=== PATIENT | female | born 1985 | race Caucasian/White ===

== ENCOUNTER → 2020-10-04 | Outpatient (CLI) | payer OTHER ==
[2020-10-04 14:03] LABS: BASO # 0.1 10^3/uL (0.0-0.2); BASO % 0.7 % (0.0-1.0); EOS # 0.1 10^3/uL (0.0-0.5); EOS % 1.3 % (0.0-3.0); LYMPH # 1.2 10^3/uL (1.5-5.0); LYMPH % 17.5 % (24.0-44.0); MEAN CORPUSCULAR HEMOGLOBIN 30.2 pg (27.0-33.0); MEAN CORPUSCULAR HGB CONC 33.3 g/dl (32.0-36.5); MEAN CORPUSCULAR VOLUME 90.5 fl (80.0-96.0); MONO # 0.7 10^3/uL (0.0-0.8); MONO % 9.2 % (2.0-8.0); NEUTROPHILS % 70.9 % (36.0-66.0); PLATELET COUNT, AUTOMATED 314 10^3/uL (150-450); RED BLOOD COUNT 4.64 10^6/uL (4.00-5.40)
[2020-10-04 14:14] LABS: PARTIAL THROMBOPLASTIN TIME 27.5 SECONDS (24.2-38.5); PROTHROMBIN TIME 13.4 SECONDS (12.5-14.3)
[2020-10-04 14:22] LABS: ERYTHROCYTE SEDIMENTATION RATE 24 mm/hr (0-20)
[2020-10-04 14:32] LABS: ALBUMIN 4.1 GM/DL (3.2-5.2); ALT/SGPT 37 U/L (12-78); BILIRUBIN,DIRECT < 0.1 MG/DL (0.0-0.2); BILIRUBIN,TOTAL 0.3 MG/DL (0.2-1.0); BLOOD UREA NITROGEN 15 MG/DL (7-18); C REACTIVE PROTEIN QUANTITATIV 1.91 MG/DL (0.00-0.30); CALCIUM LEVEL 9.5 MG/DL (8.5-10.1); CARBON DIOXIDE LEVEL 30 MEQ/L (21-32); CHLORIDE LEVEL 106 MEQ/L (98-107); CREATININE FOR GFR 0.98 MG/DL (0.55-1.30); GLOMERULAR FILTRATION RATE > 60.0 (>60); GLUCOSE, FASTING 72 MG/DL (70-100); IRON (FE) 46 UG/DL (50-170); PERCENT SATURATION 14.7 % (13.2-45.0); POTASSIUM SERUM 4.1 MEQ/L (3.5-5.1); SODIUM LEVEL 139 MEQ/L (136-145); TOTAL IRON BINDING CAPACITY 312 UG/DL (250-450); TOTAL PROTEIN 8.1 GM/DL (6.4-8.2)
[2020-10-04 14:37] LABS: HEPATITIS B SURFACE ANTIBODY POSITIVE (POSITIVE)
[2020-10-04 14:38] LABS: FOLATE 10.3 NG/ML (>5.4); VITAMIN B12 LEVEL 863 PG/ML (247-911)
== END ==
LOC: M LAB 13:19
PROVIDERS: ATTEND Internal Medicine Gastroenterology
DX: K50.90 Crohn's disease, unspecified, without complications (principal)

== ENCOUNTER → 2020-10-23 | Outpatient (CLI) | payer OTHER ==
[~2020-10-23] MED LIST: GLUCAGON INJ 1MG VIAL As Ordered ONE; ISOVUE-370 76% 100ML VIAL As Ordered ONE; VoLumen 0.1% SUSPENSION 450ML BOTTLE As Ordered ONE
--- NOTE | 2020-10-23 17:48 | REP ---
INDICATION: CROHN'S DISEASE. Patient denies a prior abdominal surgery other than and tubal ligation. COMPARISON: None. TECHNIQUE: The patient ingested oral Volumen for PO contrast per protocol. 0.6 mg of intravenous glucagon is administered. 100 ml of Isovue 370 is given intravenously for intravenous contrast. Helical scanning is acquired. Arterial phase and delayed phase imaging was acquired. Thick slab coronal and sagittal MIP images are generated. In addition coronal and sagittal multiplanar re-formation images are generated and reviewed along with axial images. FINDINGS: Digital preliminary automatic toe laster radiograph demonstrates tubal ligation clamps bilaterally in the pelvis. Bowel gas pattern is unremarkable. The lung bases are clear on axial CT images. Stomach is moderately distended with oral volume in. No gastric wall or intraluminal lesion is seen. The liver and the spleen are normal in size homogeneous in texture. Gallbladder fossa has a fold at the fundus, Phrygian cap configuration. No pancreatic abnormality is observed. Normal adrenal glands are seen bilaterally. No hydronephrosis or renal mass lesion is observed. The duodenum and jejunal loops are unremarkable. A normal appendix is seen in the right lower quadrant. There is a short segment of moderate to marked mural thickening and hyperenhancement in the distal ileum at and just proximal to the ileocecal valve for approximately 3.0 cm in length. The distal ileal loop just proximal to this segment is slightly dilated. No other evidence is seen to suggest obstruction. Mural thickening in the distal most ileum measures up to 13 mm. The cecum and colon wall are not thickened. No other small bowel involvement is appreciated. There are few tiny a normal appearing mesenteric lymph nodes. There is no evidence of fistula or free air. No abscess is seen. There is mild streakiness of the adjacent fat. No uterine or ovarian abnormality is appreciated. The urinary bladder is intact. No abdominal wall defect is seen. Maximum intensity projection images show no additional abnormality in the bowel wall. No bony destructive lesion is seen. IMPRESSION: Findings compatible with Crohn's involvement rather focally in the distal most ileum extending to the ileocecal valve with moderate mural thickening. Slight Kathy enteral fat streakiness. No evidence of abscess or aristides obstruction. <Electronically signed by Asa Kellogg > 10/23/20 [id number]
== END ==
LOC: M RAD 09:01
PROVIDERS: ATTEND Internal Medicine Gastroenterology
DX: K50.90 Crohn's disease, unspecified, without complications (principal); K62.5 Hemorrhage of anus and rectum
CPT/HCPCS: 74177; J1610; Q9967

== ENCOUNTER 2020-11-09 15:44 | Outpatient (CLI) | payer OTHER ==
[~2020-11-09 15:44] MED LIST changes: -GLUCAGON INJ 1MG VIAL As Ordered ONE; -ISOVUE-370 76% 100ML VIAL As Ordered ONE; +VEDOLIZUMAB 300 MG in NS 250 ML IV ONE; -VoLumen 0.1% SUSPENSION 450ML BOTTLE As Ordered ONE
[2020-11-09 16:00] VITALS: BP 137/82
[2020-11-09] MEDS ORDERED: MULTLIQ7 PO (16:18)
[2020-11-09] MEDS ORDERED: LAMI25TA PO (16:18)
[2020-11-09] MEDS ORDERED: HYDR-3363 PO (16:18)
[2020-11-09] MEDS ORDERED: VITA200048 PO (16:18)
[2020-11-09] MEDS ORDERED: CLAR10CA3 PO (16:18)
[2020-11-09 16:51] VITALS: BP 128/85
== END 2020-11-09 17:07 | disposition home or self-care (01) ==
LOC: M INFU 15:44
PROVIDERS: ATTEND Internal Medicine Gastroenterology
DX: K50.90 Crohn's disease, unspecified, without complications (principal)
CPT/HCPCS: 96365; J3380

== ENCOUNTER 2020-11-23 15:16 | Outpatient (CLI) | payer OTHER ==
[~2020-11-23] VITALS: Ht 167.6 cm; Wt 78.1 kg
[~2020-11-23 15:16] MED LIST changes: +CLAR10CA3 PO; +HYDR-3363 PO; +LAMI25TA PO; +MULTLIQ7 PO; -VEDOLIZUMAB 300 MG in NS 250 ML IV ONE; +VITA200048 PO
[2020-11-23 15:20] VITALS: BP 134/85
[2020-11-23] MEDS ORDERED: VEDOLIZUMAB 300 MG in NS 250 ML IV ONE (15:30)
[2020-11-23 16:45] VITALS: BP 125/85
== END 2020-11-23 16:45 | disposition home or self-care (01) ==
LOC: M INFU 15:16
PROVIDERS: ATTEND Internal Medicine Gastroenterology
DX: K50.90 Crohn's disease, unspecified, without complications (principal)
CPT/HCPCS: 96365; J3380

== ENCOUNTER 2020-12-11 21:02 | Emergency (ER) | payer OTHER ==
[~2020-12-11] VITALS: Ht 167.6 cm; Wt 80.7 kg
[2020-12-11 21:04] VITALS: BP 145/88
[2020-12-11] MEDS ORDERED: ENTY1INJ IV (21:13)
== END 2020-12-11 22:47 | disposition left against medical advice (07) ==
LOC: M ED 21:02
DX: Z53.21 Procedure and treatment not carried out due to patient leaving prior to being seen by health care provider (principal)

== ENCOUNTER → 2020-12-26 | Outpatient (CLI) | payer OTHER ==
[~2020-12-26] MED LIST changes: +CLIN150C15 PO; +ENTY1INJ IV
== END ==
LOC: M LABSMTC 09:44
PROVIDERS: ATTEND Anesthesiology
DX: Z01.812 Encounter for preprocedural laboratory examination (principal)

== ENCOUNTER 2020-12-31 10:27 | Day surgery (SDC) | payer OTHER ==
[~2020-12-31] VITALS: Ht 167.6 cm; Wt 76.2 kg
[~2020-12-31 10:27] MED LIST changes: +NS 1,000 ML IV ONE
[2020-12-31] MEDS ORDERED: LIDOCAINE 2% 100MG/5ML SDV (FOR ANES.) As Ordered ONE (10:48)
[2020-12-31] MEDS ORDERED: propofoL 200 MG/20 ML VIAL As Ordered ONE ×3 (10:48→11:12)
--- NOTE | 2020-12-31 11:46 | ROOR ---
Patient Name: Jaci Olvera Procedure Date: 12/31/2020 10:57 AM Date of : 1985 Age: 35 Room: [facility] Gender: Female Note Status: Finalized Procedure: Colonoscopy Indications: Disease activity assessment of Crohn's disease of the small bowel and colon, Assess therapeutic response to therapy of Crohn's disease of the small bowel and colon Providers: Blaine Durbin MD Referring MD: [facility], Admin. Requesting Provider: Medicines: Monitored Anesthesia Care Complications: No immediate complications. Procedure: Pre-Anesthesia Assessment: - Prior to the procedure, a History and Physical was performed, and patient medications and allergies were reviewed. The patient is competent. The risks and benefits of the procedure and the sedation options and risks were discussed with the patient. All questions were answered and informed consent was obtained. Patient identification and proposed procedure were verified by the physician, the nurse and the anesthesiologist in the procedure room. Mental Status Examination: alert and oriented. Airway Examination: normal oropharyngeal airway and neck mobility. Respiratory Examination: clear to auscultation. CV Examination: normal. Prophylactic Antibiotics: The patient does not require prophylactic antibiotics. Prior Anticoagulants: The patient has taken no previous anticoagulant or antiplatelet agents. ASA Grade Assessment: II - A patient with mild systemic disease. After reviewing the risks and benefits, the patient was deemed in satisfactory condition to undergo the procedure. The anesthesia plan was to use monitored anesthesia care (MAC). Immediately prior to administration of medications, the patient was re-assessed for adequacy to receive sedatives. The heart rate, respiratory rate, oxygen saturations, blood pressure, adequacy of pulmonary ventilation, and response to care were monitored throughout the procedure. The physical status of the patient was re-assessed after the procedure. The Colonoscope was introduced through the anus and advanced to the terminal ileum, with identification of the appendiceal orifice and IC valve. The colonoscopy was performed without difficulty. The patient tolerated the procedure well. Findings: The perianal exam findings include thrombosed external hemorrhoids. The ileocecal valve contained a benign-appearing, intrinsic severe stenosis measuring 8 mm (inner diameter) that was non-traversed. Biopsies were taken with a cold forceps for histology. Verification of patient identification for the specimen was done by the physician and nurse using the patient's name, date and medical record number. Estimated blood loss was minimal. The terminal ileum and ileocecal valve contained multiple ulcers. The ulcers bleeding on contact with scope. No stigmata of recent bleeding were seen. A large healed ulcer was found in the sigmoid colon, in the descending colon, in the transverse colon and in the ascending colon. The scar tissue was healthy in appearance. An area of mildly congested mucosa was found in the entire colon. Biopsies for histology were taken with a cold forceps from the right colon, left colon, transverse colon and rectosigmoid colon for evaluation of microscopic colitis. External hemorrhoids were found during retroflexion. The hemorrhoids were large. Impression: - Thrombosed external hemorrhoids found on perianal exam. - Stricture at the ileocecal valve. Biopsied. - Multiple ulcers in the terminal ileum and at the ileocecal valve. - Scar in the sigmoid colon, in the descending colon, in the transverse colon and in the ascending colon. - Congested mucosa in the entire examined colon. Biopsied. - External hemorrhoids. Recommendation: - Patient has a contact number available for emergencies. The signs and symptoms of potential delayed complications were discussed with the patient. Return to normal activities tomorrow. Written discharge instructions were provided to the patient. - High fiber diet. - Use original regular Metamucil one tablespoon PO daily. - Continue present medications. - Await pathology results. - Repeat colonoscopy in 1 year to assess disease activity, to evaluate the response to therapy and for surveillance based on pathology results. - Return to GI clinic 1 - 2 weeks. Please call GI clinic @ [phone] for apppointment date and time. - Return to primary care physician. Procedure Code(s): --- Professional --- 59544, Colonoscopy, flexible; with biopsy, single or multiple Diagnosis Code(s): --- Professional --- K64.5, Perianal venous thrombosis K50.812, Crohn's disease of both small and large intestine with intestinal obstruction K63.3, Ulcer of intestine K63.89, Other specified diseases of intestine CPT copyright 2019 [employer]. All rights reserved. The codes documented in this report are preliminary and upon vision therapist review may be revised to meet current compliance requirements. Blaine Durbin MD Blaine Durbin MD 12/31/2020 11:46:13 AM Electronically signed by Blaine Durbin MD Number of Addenda: 0 Note Initiated On: 12/31/2020 10:57 AM Estimated Blood Loss: Estimated blood loss was minimal.
[2020-12-31 11:50] VITALS: BP 121/81
== END 2020-12-31 12:10 | disposition home or self-care (01) ==
LOC: M OPP 10:27
PROVIDERS: ATTEND Internal Medicine Gastroenterology
DX: K63.3 Ulcer of intestine (principal); K63.89 Other specified diseases of intestine; K64.5 Perianal venous thrombosis; K50.812 Crohn's disease of both small and large intestine with intestinal obstruction; D64.9 Anemia, unspecified; F17.210 Nicotine dependence, cigarettes, uncomplicated; Z79.899 Other long term (current) drug therapy

== ENCOUNTER 2021-01-18 14:49 | Outpatient (CLI) | payer OTHER ==
[~2021-01-18] VITALS: Ht 167.6 cm; Wt 78.1 kg
[~2021-01-18 14:49] MED LIST changes: -NS 1,000 ML IV ONE
[2021-01-18 15:00] VITALS: BP 146/78
[2021-01-18] MEDS ORDERED: VEDOLIZUMAB 300 MG in NS 250 ML IV ONE (15:00)
[2021-01-18 16:15] VITALS: BP 140/87
== END 2021-01-18 16:15 | disposition home or self-care (01) ==
LOC: M INFU 14:49
PROVIDERS: ATTEND Internal Medicine Gastroenterology
DX: K50.90 Crohn's disease, unspecified, without complications (principal)
CPT/HCPCS: 96365; J3380

== ENCOUNTER 2021-03-14 20:11 | Emergency (ER) | payer OTHER ==
[~2021-03-14] VITALS: Ht 167.6 cm; Wt 74.3 kg
[~2021-03-14 20:11] MED LIST changes: -CLIN150C15 PO; +CLIN150C17 PO
[2021-03-14 21:55] LABS: HEMATOCRIT 40.9 % (36.0-47.0); HEMOGLOBIN 13.8 g/dl (12.0-15.5); MEAN CORPUSCULAR HEMOGLOBIN 29.4 pg (27.0-33.0); MEAN CORPUSCULAR HGB CONC 33.7 g/dl (32.0-36.5); PLATELET COUNT, AUTOMATED 298 10^3/uL (150-450); WHITE BLOOD COUNT 11.2 10^3/uL (4.0-10.0)
[2021-03-14] MEDS ORDERED: DICYCLOMINE 10 MG CAP PO ONE (22:10)
[2021-03-14] MEDS ORDERED: ONDANSETRON 4MG/2ML VIAL IV ONE (22:10)
[2021-03-14] MEDS ORDERED: NS 1,000 ML IV ONE (22:10)
[2021-03-14 22:22] LABS: ALBUMIN 3.7 GM/DL (3.2-5.2); ALT/SGPT 31 U/L (12-78); BILIRUBIN,DIRECT 0.2 MG/DL (0.0-0.2); BILIRUBIN,TOTAL 0.4 MG/DL (0.2-1.0); BLOOD UREA NITROGEN 14 MG/DL (7-18); CALCIUM LEVEL 8.2 MG/DL (8.5-10.1); CARBON DIOXIDE LEVEL 27 MEQ/L (21-32); CHLORIDE LEVEL 105 MEQ/L (98-107); CREATININE FOR GFR 0.95 MG/DL (0.55-1.30); GLOMERULAR FILTRATION RATE > 60.0 (>60); GLUCOSE, FASTING 90 MG/DL (70-100); LIPASE 85 U/L (73-393); POTASSIUM SERUM 4.1 MEQ/L (3.5-5.1); SODIUM LEVEL 137 MEQ/L (136-145); TOTAL PROTEIN 7.8 GM/DL (6.4-8.2)
[2021-03-14] MEDS ORDERED: ISOVUE-370 76% 100ML VIAL As Ordered ONE (22:33)
--- NOTE | 2021-03-14 23:35 | REPVR ---
PROCEDURE INFORMATION: Exam: CT Abdomen And Pelvis With Contrast Exam date and time: 03/14/2021 10:38 PM Age: 36 years old Clinical indication: Abdominal pain; Prior surgery; Additional info: Generalized abd pain, nv, HX crohns TECHNIQUE: Imaging protocol: Computed tomography of the abdomen and pelvis with contrast. Axial, coronal and sagittal reformatted images were created and reviewed. Radiation optimization: All CT scans at this facility use at least one of these dose optimization techniques: automated exposure control; mA and/or kV adjustment per patient size (includes targeted exams where dose is matched to clinical indication); or iterative reconstruction. Contrast material: ISOVUE 370; Contrast volume: 100 ml; Contrast route: INTRAVENOUS (IV); COMPARISON: No relevant prior studies available. FINDINGS: Liver: Mild hepatic steatosis. Gallbladder and bile ducts: No radiodense gallstones. No biliary ductal dilatation. Pancreas: Unremarkable. Spleen: Unremarkable. Adrenal glands: Normal. No mass. Kidneys and ureters: No mass. No radiodense calculi. No hydronephrosis. Stomach and bowel: Severe wall thickening of the terminal ileum and cecum with associated mural and mesenteric edema. No obstruction. No pneumatosis. Appendix: Normal. Intraperitoneal space: Trace nonspecific free pelvic fluid, likely physiologic and/or reactive. No organized fluid collection. No free air. Vasculature: Unremarkable. No aneurysm. Lymph nodes: No pathologically enlarged lymph nodes. Urinary bladder: Unremarkable as visualized. Reproductive: Probable involuting left ovarian corpus luteal cyst. Bones/joints: No acute osseous abnormality. Soft tissues: Unremarkable. IMPRESSION: 1. Terminal ileitis and cecitis, compatible with Crohn's exacerbation. 2. Additional findings, as above. Electronically signed by: Ricardo Gonzalez On 03/14/2021 23:34:46 PM
[2021-03-15] MEDS ORDERED: BUDESONIDE EC 3 MG CAP (ENTOCORT EC) PO STA (00:24)
[2021-03-15] MEDS ORDERED: BUDE9TAB PO (00:42)
[2021-03-15] MEDS ORDERED: ONDA4TAB6 PO (00:42)
[2021-03-15 00:54] VITALS: BP 138/87
== END 2021-03-15 00:55 | disposition home or self-care (01) ==
LOC: M ED 20:11
DX: K50.919 Crohn's disease, unspecified, with unspecified complications (principal); R11.2 Nausea with vomiting, unspecified; F17.200 Nicotine dependence, unspecified, uncomplicated; K76.0 Fatty (change of) liver, not elsewhere classified; Z79.899 Other long term (current) drug therapy
CPT/HCPCS: 74177; 80048; 80076; 81001; 83690; 85027; 96361; 96374; 99284; J2405; Q9967

== ENCOUNTER 2021-03-15 14:55 | Outpatient (CLI) | payer OTHER ==
[~2021-03-15] VITALS: Ht 167.6 cm; Wt 74.3 kg
[~2021-03-15 14:55] MED LIST changes: +BUDE9TAB PO; +ONDA4TAB6 PO
[2021-03-15 15:00] VITALS: BP 126/78
[2021-03-15] MEDS ORDERED: VEDOLIZUMAB 300 MG in NS 250 ML IV ONE (15:00)
[2021-03-15 15:12] VITALS: BP 126/78
[2021-03-15 16:10] VITALS: BP 131/70
== END 2021-03-15 16:10 | disposition home or self-care (01) ==
LOC: M INFU 14:55
PROVIDERS: ATTEND Internal Medicine Gastroenterology
DX: K50.90 Crohn's disease, unspecified, without complications (principal)
CPT/HCPCS: 96365; J3380

== ENCOUNTER 2021-05-10 15:11 | Outpatient (CLI) | payer OTHER ==
[~2021-05-10] VITALS: Ht 167.6 cm; Wt 74.0 kg
[~2021-05-10 15:11] MED LIST changes: +VEDOLIZUMAB 300 MG in NS 250 ML IV ONE
[2021-05-10 15:26] VITALS: BP 123/76
[2021-05-10 16:34] VITALS: BP 124/72
== END 2021-05-10 16:35 | disposition home or self-care (01) ==
LOC: M INFU 15:11
PROVIDERS: ATTEND Internal Medicine Gastroenterology
DX: K50.90 Crohn's disease, unspecified, without complications (principal)
CPT/HCPCS: 96365; J3380

== ENCOUNTER → 2021-06-14 | Outpatient (CLI) | payer OTHER ==
[~2021-06-14] MED LIST changes: -VEDOLIZUMAB 300 MG in NS 250 ML IV ONE
[2021-06-14 10:22] LABS: BASO # 0.1 10^3/uL (0.0-0.2); BASO % 0.6 % (0.0-1.0); EOS # 0.3 10^3/uL (0.0-0.5); EOS % 3.4 % (0.0-3.0); HEMATOCRIT 43.1 % (36.0-47.0); HEMOGLOBIN 14.2 g/dl (12.0-15.5); LYMPH # 1.7 10^3/uL (1.5-5.0); LYMPH % 21.2 % (24.0-44.0); MEAN CORPUSCULAR HEMOGLOBIN 29.8 pg (27.0-33.0); MEAN CORPUSCULAR HGB CONC 32.9 g/dl (32.0-36.5); MEAN CORPUSCULAR VOLUME 90.4 fl (80.0-96.0); MONO # 0.7 10^3/uL (0.0-0.8); MONO % 8.9 % (2.0-8.0); NEUTROPHILS # 5.1 10^3/uL (1.5-8.5); NEUTROPHILS % 65.4 % (36.0-66.0); PLATELET COUNT, AUTOMATED 289 10^3/uL (150-450); RED BLOOD COUNT 4.77 10^6/uL (4.00-5.40); WHITE BLOOD COUNT 7.8 10^3/uL (4.0-10.0)
[2021-06-14 11:05] LABS: BLOOD UREA NITROGEN 15 MG/DL (7-18); C REACTIVE PROTEIN QUANTITATIV 0.89 MG/DL (0.00-0.30); CREATININE FOR GFR 0.82 MG/DL (0.55-1.30); GLOMERULAR FILTRATION RATE > 60.0 (>60)
[2021-06-14 12:11] LABS: ERYTHROCYTE SEDIMENTATION RATE 16 mm/hr (0-20)
== END ==
LOC: M LAB 09:32
PROVIDERS: ATTEND Internal Medicine Gastroenterology
DX: K50.812 Crohn's disease of both small and large intestine with intestinal obstruction (principal)

== ENCOUNTER 2021-06-21 14:54 | Outpatient (CLI) | payer OTHER ==
[~2021-06-21] VITALS: Ht 167.6 cm; Wt 74.0 kg
[2021-06-21 15:00] VITALS: BP 130/83
[2021-06-21] MEDS ORDERED: VEDOLIZUMAB 300 MG in NS 250 ML IV ONE (15:00)
[2021-06-21 16:37] VITALS: BP 124/79
== END 2021-06-21 16:40 | disposition home or self-care (01) ==
LOC: M INFU 14:54
PROVIDERS: ATTEND Internal Medicine Gastroenterology
DX: K50.90 Crohn's disease, unspecified, without complications (principal)
CPT/HCPCS: 96365; J3380

== ENCOUNTER 2021-07-31 15:59 | Outpatient (CLI) | payer OTHER ==
[~2021-07-31] VITALS: Ht 167.6 cm; Wt 74.2 kg
[2021-07-31] MEDS ORDERED: VEDOLIZUMAB 300 MG in NS 250 ML IV ONE (16:00)
[2021-07-31 16:05] VITALS: BP 125/69
[2021-07-31 17:10] VITALS: BP 139/70
== END 2021-07-31 17:10 | disposition home or self-care (01) ==
LOC: M INFU 15:59
PROVIDERS: ATTEND Internal Medicine Gastroenterology
DX: K50.90 Crohn's disease, unspecified, without complications (principal)
CPT/HCPCS: 96365; J3380

== ENCOUNTER 2021-09-13 14:51 | Outpatient (CLI) | payer OTHER ==
[~2021-09-13] VITALS: Ht 167.6 cm; Wt 75.5 kg
[2021-09-13] MEDS ORDERED: VEDOLIZUMAB 300 MG in NS 250 ML IV ONE (15:00)
[2021-09-13 15:18] VITALS: BP 132/81
[2021-09-13 16:00] VITALS: BP 143/90
== END 2021-09-13 16:00 | disposition home or self-care (01) ==
LOC: M INFU 14:51
PROVIDERS: ATTEND Internal Medicine Gastroenterology
DX: K50.90 Crohn's disease, unspecified, without complications (principal)
CPT/HCPCS: 96365; J3380

== ENCOUNTER 2021-10-25 14:48 | Outpatient (CLI) | payer OTHER ==
[~2021-10-25] VITALS: Ht 167.6 cm; Wt 74.3 kg
[2021-10-25] MEDS ORDERED: VEDOLIZUMAB 300 MG in NS 250 ML IV ONE (15:00)
[2021-10-25 15:08] VITALS: BP 157/89
[2021-10-25 16:00] VITALS: BP 137/89
== END 2021-10-25 16:00 | disposition home or self-care (01) ==
LOC: M INFU 14:48
PROVIDERS: ATTEND Internal Medicine Gastroenterology
DX: K50.90 Crohn's disease, unspecified, without complications (principal)
CPT/HCPCS: 96365; J3380

== ENCOUNTER 2022-01-07 15:45 | Outpatient (CLI) | payer OTHER ==
[~2022-01-07 15:45] MED LIST changes: +VEDOLIZUMAB 300 MG in NS 250 ML IV ONE
[2022-01-07 15:57] VITALS: BP 130/84
[2022-01-07 16:50] VITALS: BP 145/82
== END 2022-01-07 16:55 | disposition home or self-care (01) ==
LOC: M INFU 15:45
PROVIDERS: ATTEND Internal Medicine Gastroenterology
DX: K50.90 Crohn's disease, unspecified, without complications (principal)
CPT/HCPCS: 96365; J3380

== ENCOUNTER 2022-01-16 07:47 | Emergency (ER) | payer OTHER ==
[~2022-01-16] VITALS: Ht 167.6 cm; Wt 76.2 kg
[~2022-01-16 07:47] MED LIST changes: -VEDOLIZUMAB 300 MG in NS 250 ML IV ONE
[2022-01-16] MEDS ORDERED: NS 1,000 ML IV ONE (08:35)
[2022-01-16] MEDS ORDERED: MORPHINE 4 MG/ML 1ML VIAL/SYRINGE IV ONE (08:35)
[2022-01-16] MEDS ORDERED: ONDANSETRON 4MG/2ML VIAL IV ONE (08:35)
[2022-01-16] MEDS ORDERED: PANTOPRAZOLE 40MG VIAL IV ONE (08:35)
[2022-01-16 09:23] LABS: BASO % 0.4 % (0.0-1.0); EOS # 0.1 10^3/uL (0.0-0.5); EOS % 1.2 % (0.0-3.0); HEMATOCRIT 42.5 % (36.0-47.0); LYMPH # 1.4 10^3/uL (1.5-5.0); LYMPH % 12.8 % (24.0-44.0); MEAN CORPUSCULAR HEMOGLOBIN 29.5 pg (27.0-33.0); MEAN CORPUSCULAR HGB CONC 32.9 g/dl (32.0-36.5); MEAN CORPUSCULAR VOLUME 89.7 fl (80.0-96.0); MONO # 0.9 10^3/uL (0.0-0.8); MONO % 8.1 % (2.0-8.0); NEUTROPHILS # 8.5 10^3/uL (1.5-8.5); NEUTROPHILS % 77.2 % (36.0-66.0); PLATELET COUNT, AUTOMATED 369 10^3/uL (150-450); RED BLOOD COUNT 4.74 10^6/uL (4.00-5.40)
[2022-01-16] MEDS ORDERED: ISOVUE-370 76% 100ML VIAL As Ordered ONE (09:29)
[2022-01-16 09:49] LABS: ALBUMIN 3.6 GM/DL (3.2-5.2); BILIRUBIN,DIRECT 0.2 MG/DL (0.0-0.2); BILIRUBIN,TOTAL 0.5 MG/DL (0.2-1.0); TOTAL PROTEIN 7.8 GM/DL (6.4-8.2)
[2022-01-16] MEDS ORDERED: ONDA4TAB6 PO (10:19)
[2022-01-16] MEDS ORDERED: PRED10TA2 PO (10:19)
[2022-01-16 10:27] VITALS: BP 131/96
== END 2022-01-16 10:38 | disposition home or self-care (01) ==
LOC: M ED 07:47
DX: K50.919 Crohn's disease, unspecified, with unspecified complications (principal); F41.9 Anxiety disorder, unspecified; F17.200 Nicotine dependence, unspecified, uncomplicated; Z79.899 Other long term (current) drug therapy
CPT/HCPCS: 36415; 74177; 80047; 80076; 83690; 84702; 85025; 96361; 96374; 99284; C9113; J2270; J2405; Q9967

== ENCOUNTER 2022-02-04 15:35 | Outpatient (CLI) | payer OTHER ==
[2022-02-04 15:30] VITALS: BP 133/92
[~2022-02-04 15:35] MED LIST changes: +PRED10TA2 PO; +VEDOLIZUMAB 300 MG in NS 250 ML IV ONE
[2022-02-04 16:37] VITALS: BP 128/88
== END 2022-02-04 16:40 | disposition home or self-care (01) ==
LOC: M INFU 15:35
PROVIDERS: ATTEND Internal Medicine Gastroenterology
DX: K50.90 Crohn's disease, unspecified, without complications (principal)
CPT/HCPCS: 96365; J3380

== ENCOUNTER 2022-03-04 15:20 | Outpatient (CLI) | payer OTHER ==
[~2022-03-04] VITALS: Ht 167.6 cm; Wt 77.2 kg
[2022-03-04 15:20] VITALS: BP 148/85
[~2022-03-04 15:20] MED LIST changes: -VEDOLIZUMAB 300 MG in NS 250 ML IV ONE
[2022-03-04] MEDS ORDERED: VEDOLIZUMAB 300 MG in NS 250 ML IV ONE (15:30)
[2022-03-04 16:20] VITALS: BP 149/81
== END 2022-03-04 16:20 | disposition home or self-care (01) ==
LOC: M INFU 15:20
PROVIDERS: ATTEND Internal Medicine Gastroenterology
DX: K50.90 Crohn's disease, unspecified, without complications (principal)
CPT/HCPCS: 96365; J3380

== ENCOUNTER 2022-04-08 15:35 | Outpatient (CLI) | payer OTHER ==
[~2022-04-08] VITALS: Ht 167.6 cm; Wt 77.0 kg
[~2022-04-08 15:35] MED LIST changes: +VEDOLIZUMAB 300 MG in NS 250 ML IV ONE
[2022-04-08 15:41] VITALS: BP 140/82
[2022-04-08 16:36] VITALS: BP 133/94
== END 2022-04-08 16:45 | disposition home or self-care (01) ==
LOC: M INFU 15:35
PROVIDERS: ATTEND Internal Medicine Gastroenterology
DX: K50.90 Crohn's disease, unspecified, without complications (principal)
CPT/HCPCS: 96365; J3380

== ENCOUNTER 2022-06-03 15:20 | Outpatient (CLI) | payer OTHER ==
[2022-06-03 15:05] VITALS: BP 133/83
[~2022-06-03 15:20] MED LIST changes: -VEDOLIZUMAB 300 MG in NS 250 ML IV ONE
[2022-06-03] MEDS ORDERED: VEDOLIZUMAB 300 MG in NS 250 ML IV ONE (15:30)
[2022-06-03 16:22] VITALS: BP 138/86
== END 2022-06-03 16:15 | disposition home or self-care (01) ==
LOC: M INFU 15:20
PROVIDERS: ATTEND Internal Medicine Gastroenterology
DX: K50.90 Crohn's disease, unspecified, without complications (principal)
CPT/HCPCS: 96365; J3380

== ENCOUNTER 2022-07-01 15:00 | Outpatient (CLI) | payer OTHER ==
[2022-07-01 15:06] VITALS: BP 138/83
[2022-07-01] MEDS ORDERED: VEDOLIZUMAB 300 MG in NS 250 ML IV ONE (15:30)
[2022-07-01 15:35] VITALS: BP 132/80
== END 2022-07-01 15:40 | disposition home or self-care (01) ==
LOC: M INFU 15:00
PROVIDERS: ATTEND Internal Medicine Gastroenterology
DX: K50.90 Crohn's disease, unspecified, without complications (principal)
CPT/HCPCS: 96365; J3380

== ENCOUNTER 2022-07-29 13:30 | Outpatient (CLI) | payer OTHER ==
[~2022-07-29] VITALS: Ht 167.6 cm; Wt 77.0 kg
[2022-07-29 13:29] VITALS: BP 136/71
[2022-07-29 14:43] VITALS: BP 125/92
[2022-07-29] MEDS ORDERED: VEDOLIZUMAB 300 MG in NS 250 ML IV ONE (15:30)
== END 2022-07-29 14:40 | disposition home or self-care (01) ==
LOC: M INFU 13:30
PROVIDERS: ATTEND Internal Medicine Gastroenterology
DX: K50.90 Crohn's disease, unspecified, without complications (principal)
CPT/HCPCS: 96365; J3380

== ENCOUNTER 2022-08-26 15:15 | Outpatient (CLI) | payer OTHER ==
[~2022-08-26] VITALS: Ht 167.6 cm; Wt 77.0 kg
[2022-08-26 15:21] VITALS: BP 157/93
[2022-08-26] MEDS ORDERED: VEDOLIZUMAB 300 MG in NS 250 ML IV ONE (15:30)
[2022-08-26 16:21] VITALS: BP 120/70
== END 2022-08-26 16:20 | disposition home or self-care (01) ==
LOC: M INFU 15:15
PROVIDERS: ATTEND Internal Medicine Gastroenterology
DX: K50.90 Crohn's disease, unspecified, without complications (principal)
CPT/HCPCS: 96365; J3380

== ENCOUNTER 2022-10-20 14:35 | Outpatient (CLI) | payer OTHER ==
[~2022-10-20] VITALS: Ht 167.6 cm; Wt 84.0 kg
[2022-10-20 14:35] VITALS: BP 145/88
[~2022-10-20 14:35] MED LIST changes: +VEDOLIZUMAB 300 MG in NS 250 ML IV ONE
[2022-10-20 15:55] VITALS: BP 144/83
== END 2022-10-20 15:55 | disposition home or self-care (01) ==
LOC: M INFU 14:35
PROVIDERS: ATTEND Internal Medicine Gastroenterology
DX: K50.90 Crohn's disease, unspecified, without complications (principal)
CPT/HCPCS: 96365; J3380

== ENCOUNTER 2022-11-26 15:20 | Outpatient (CLI) | payer OTHER ==
[~2022-11-26] VITALS: Ht 167.6 cm; Wt 84.0 kg
[2022-11-26 15:20] VITALS: BP 136/65
[~2022-11-26 15:20] MED LIST changes: -VEDOLIZUMAB 300 MG in NS 250 ML IV ONE
[2022-11-26] MEDS ORDERED: VEDOLIZUMAB 300 MG in NS 250 ML IV ONE (15:30)
[2022-11-26 16:25] VITALS: BP 138/76
== END 2022-11-26 16:25 | disposition home or self-care (01) ==
LOC: M INFU 15:20
PROVIDERS: ATTEND Internal Medicine Gastroenterology
DX: K50.90 Crohn's disease, unspecified, without complications (principal)
CPT/HCPCS: 96365; J3380

== ENCOUNTER 2022-12-30 15:25 | Outpatient (CLI) | payer OTHER ==
[~2022-12-30] VITALS: Ht 167.6 cm; Wt 84.0 kg
[2022-12-30] MEDS ORDERED: VEDOLIZUMAB 300 MG in NS 250 ML IV ONE (15:30)
[2022-12-30 15:48] VITALS: BP 165/81
[2022-12-30 16:25] VITALS: BP 139/87
[2022-12-30 16:31] VITALS: BP 131/86
== END 2022-12-30 16:30 | disposition home or self-care (01) ==
LOC: M INFU 15:25
PROVIDERS: ATTEND Internal Medicine Gastroenterology
DX: K50.90 Crohn's disease, unspecified, without complications (principal)
CPT/HCPCS: 96365; J3380

== ENCOUNTER 2023-01-27 15:55 | Outpatient (CLI) | payer OTHER ==
[~2023-01-27] VITALS: Ht 167.6 cm; Wt 84.0 kg
[2023-01-27] MEDS ORDERED: VEDOLIZUMAB 300 MG in NS 250 ML IV ONE (16:00)
[2023-01-27 16:03] VITALS: BP 133/88; O2SAT 98
[2023-01-27 17:03] VITALS: BP 133/80; O2SAT 100
== END 2023-01-27 17:05 ==
LOC: M INFU 15:55
PROVIDERS: ATTEND Internal Medicine Gastroenterology
DX: K50.90 Crohn's disease, unspecified, without complications (principal)
CPT/HCPCS: 96365; J3380

== ENCOUNTER 2023-02-05 04:00 | Inpatient (IN) | payer OTHER ==
[~2023-02-05] VITALS: Ht 167.6 cm; Wt 78.8 kg
[2023-02-05] MEDS ORDERED: HYDR-3363 PO (04:10)
[2023-02-05 05:53] LABS: BASO % 0.3 % (0.0-1.0); EOS # 0.1 10^3/uL (0.0-0.5); EOS % 0.7 % (0.0-3.0); HEMOGLOBIN 15.2 g/dl (12.0-15.5); LYMPH # 1.5 10^3/uL (1.5-5.0); LYMPH % 12.9 % (24.0-44.0); MEAN CORPUSCULAR HEMOGLOBIN 28.8 pg (27.0-33.0); MEAN CORPUSCULAR VOLUME 87.3 fl (80.0-96.0); MONO % 8.7 % (2.0-8.0); NEUTROPHILS # 8.8 10^3/uL (1.5-8.5); PLATELET COUNT, AUTOMATED 399 10^3/uL (150-450); RED BLOOD COUNT 5.27 10^6/uL (4.00-5.40); WHITE BLOOD COUNT 11.4 10^3/uL (4.0-10.0)
[2023-02-05 06:04] LABS: LIPASE 26 U/L (12-53)
[2023-02-05 06:06] LABS: ALBUMIN 4.3 G/DL (3.2-5.2); ALKALINE PHOSPHATASE 67 U/L (46-116); ALT/SGPT 25 U/L (7.0-40); AST/SGOT 15 U/L (<34); BILIRUBIN,DIRECT 0.2 MG/DL (<0.4); BILIRUBIN,TOTAL 0.6 MG/DL (0.3-1.2); BLOOD UREA NITROGEN 10 MG/DL (9-23); CALCIUM LEVEL 9.7 MG/DL (8.5-10.1); CARBON DIOXIDE LEVEL 26 MMOL/L (20-31); CHLORIDE LEVEL 104 MMOL/L (98-107); CREATININE FOR GFR 0.79 MG/DL (0.55-1.30); GLOMERULAR FILTRATION RATE > 60.0 (>60); GLUCOSE, FASTING 100 MG/DL (60-100); POTASSIUM SERUM 3.8 MMOL/L (3.5-5.1); SODIUM LEVEL 136 MMOL/L (136-145)
[2023-02-05 06:08] LABS: AMYLASE 77 U/L (30-118); INR 0.98; PROTHROMBIN TIME 13.2 SECONDS (12.5-14.5)
[2023-02-05] MEDS ORDERED: ONDANSETRON 4MG 2ML VIAL IV ONE (07:10)
[2023-02-05] MEDS ORDERED: NS 1,000 ML IV ONE (07:10)
[2023-02-05] MEDS ORDERED: MORPHINE 4 MG/ML 1ML VIAL IV PRN (07:10)
[2023-02-05 08:12] LABS: HCG, SERUM QUALITATIVE NEGATIVE (NEGATIVE)
[2023-02-05] MEDS: GASTROGRAFIN SOLUTION 30ML PO SCH ×2 (09:12→09:30)
[2023-02-05] MEDS ORDERED: ISOVUE-370 76% 100ML VIAL As Ordered ONE (10:32)
[2023-02-05] MEDS ORDERED: MED REC IN PROGRESS XX SCH (12:50)
[2023-02-05] MEDS ORDERED: ONDA8TAB8 PO (12:53)
[2023-02-05] MEDS ORDERED: HOME MED LIST COMPLETE! XX SCH (13:05)
[2023-02-05] MEDS ORDERED: ONDANSETRON 4MG 2ML VIAL IV PRN (13:10)
[2023-02-05] MEDS: PANTOPRAZOLE 40MG VIAL IV SCH (14:16)
[2023-02-05] MEDS: LR 1,000 ML IV SCH ×2 (14:16→23:10)
[2023-02-05 15:00] VITALS: BP 138/89; TEMP 99; O2SAT 98
[2023-02-05] MEDS: MORPHINE 4 MG/ML 1ML VIAL IV PRN (18:59)
[2023-02-05 21:33] VITALS: BP 130/74; TEMP 98.4; O2SAT 98
[2023-02-05] MEDS: PIPERACILLIN/TAZOBACTAM SOD 3.375 GM in D5W MINI-BAG PLUS 50 ML IV SCH (23:16)
[2023-02-06 05:12] VITALS: BP 113/76; TEMP 98.1; O2SAT 95
[2023-02-06] MEDS: PIPERACILLIN/TAZOBACTAM SOD 3.375 GM in D5W MINI-BAG PLUS 50 ML IV SCH ×2 (05:38→10:26)
[2023-02-06] MEDS: MORPHINE 4 MG/ML 1ML VIAL IV PRN (06:17)
[2023-02-06 06:46] LABS: BLOOD UREA NITROGEN 10 MG/DL (9-23); CARBON DIOXIDE LEVEL 26 MMOL/L (20-31); CHLORIDE LEVEL 107 MMOL/L (98-107); CREATININE FOR GFR 0.77 MG/DL (0.55-1.30); GLOMERULAR FILTRATION RATE > 60.0 (>60); GLUCOSE, FASTING 69 MG/DL (60-100); POTASSIUM SERUM 3.7 MMOL/L (3.5-5.1); SODIUM LEVEL 139 MMOL/L (136-145)
[2023-02-06 06:52] LABS: BASO % 0.4 % (0.0-1.0); EOS # 0.2 10^3/uL (0.0-0.5); EOS % 2.4 % (0.0-3.0); LYMPH # 1.9 10^3/uL (1.5-5.0); MEAN CORPUSCULAR HEMOGLOBIN 29.1 pg (27.0-33.0); MEAN CORPUSCULAR HGB CONC 33.4 g/dl (32.0-36.5); MONO # 0.8 10^3/uL (0.0-0.8); MONO % 10.6 % (2.0-8.0); NEUTROPHILS # 4.6 10^3/uL (1.5-8.5); NEUTROPHILS % 61.2 % (36.0-66.0); PLATELET COUNT, AUTOMATED 301 10^3/uL (150-450); RED BLOOD COUNT 4.37 10^6/uL (4.00-5.40); WHITE BLOOD COUNT 7.5 10^3/uL (4.0-10.0)
[2023-02-06 06:54] LABS: HEMOGLOBIN 12.7 g/dl (12.0-15.5)
[2023-02-06] MEDS ORDERED: ENOXAPARIN 40MG/0.4ML SYRINGE (J1650 PER 10MG) SC SCH (09:00)
[2023-02-06] MEDS: PANTOPRAZOLE 40MG VIAL IV SCH (09:06)
[2023-02-06] MEDS: LR 1,000 ML IV SCH (09:07)
[2023-02-06] MEDS ORDERED: METR-265 PO (10:44)
[2023-02-06] MEDS ORDERED: CEFD300C41 PO (10:44)
[2023-02-06] MEDS ORDERED: PROBCAP14 PO (10:44)
== END 2023-02-06 13:05 | disposition home or self-care (01) | DRG 386 ==
LOC: M ED 04:00 → M ED INP 13:08 → ENRESERV 14:54 → M MSPAV 15:28
PROVIDERS: ADMIT Internal Medicine Nephrology; ATTEND Internal Medicine Nephrology
DX: K50.912 Crohn's disease, unspecified, with intestinal obstruction (principal); J98.11 Atelectasis; J20.9 Acute bronchitis, unspecified; Z79.899 Other long term (current) drug therapy; F17.200 Nicotine dependence, unspecified, uncomplicated

== ENCOUNTER 2023-04-01 14:32 | Outpatient (CLI) | payer OTHER ==
[~2023-04-01] VITALS: Ht 167.6 cm; Wt 77.3 kg
[~2023-04-01 14:32] MED LIST changes: +CEFD300C41 PO; +METR-265 PO; +ONDA8TAB8 PO; +PROBCAP14 PO
[2023-04-01 14:45] VITALS: BP 138/81; O2SAT 100
[2023-04-01] MEDS ORDERED: VEDOLIZUMAB 300 MG in NS 250 ML IV ONE (15:00)
[2023-04-01 16:00] VITALS: BP 130/82; TEMP 36.7; O2SAT 100
== END 2023-04-01 16:00 ==
LOC: M INFU 14:32
PROVIDERS: ATTEND Internal Medicine Gastroenterology
DX: K50.90 Crohn's disease, unspecified, without complications (principal)
CPT/HCPCS: 96365; J3380

== ENCOUNTER → 2023-05-27 | Outpatient (CLI) | payer OTHER ==
[~2023-05-27] VITALS: Ht 167.6 cm; Wt 81.0 kg
[~2023-05-27] MED LIST changes: -CEFD300C41 PO; +CEFD300C42 PO; +VEDOLIZUMAB 300 MG in NS 250 ML IV ONE
[2023-05-27 16:15] VITALS: BP 126/88; O2SAT 99
[2023-05-27 17:14] VITALS: BP 122/82; O2SAT 99
== END ==
LOC: M INFU 16:13
PROVIDERS: ATTEND Internal Medicine Gastroenterology
DX: K50.90 Crohn's disease, unspecified, without complications (principal)
CPT/HCPCS: 96365; J3380

== ENCOUNTER 2023-06-24 16:35 | Outpatient (CLI) | payer OTHER ==
[~2023-06-24] VITALS: Ht 167.6 cm; Wt 82.0 kg
[2023-06-24 16:35] VITALS: BP 126/73; O2SAT 100
[~2023-06-24 16:35] MED LIST changes: -VEDOLIZUMAB 300 MG in NS 250 ML IV ONE
[2023-06-24] MEDS ORDERED: VEDOLIZUMAB 300 MG in NS 250 ML IV ONE (16:50)
[2023-06-24 17:44] VITALS: BP 136/91; O2SAT 100
== END 2023-06-24 17:45 ==
LOC: M INFU 16:35
PROVIDERS: ATTEND Internal Medicine Gastroenterology
DX: K50.90 Crohn's disease, unspecified, without complications (principal)
CPT/HCPCS: 96365; J3380

== ENCOUNTER 2023-07-22 16:30 | Outpatient (CLI) | payer OTHER ==
[~2023-07-22] VITALS: Ht 167.6 cm; Wt 82.0 kg
[~2023-07-22 16:30] MED LIST changes: +CEFD1CAP9 PO; -CEFD300C42 PO; +VEDOLIZUMAB 300 MG in NS 250 ML IV ONE
[2023-07-22 16:38] VITALS: BP 140/88; O2SAT 100
[2023-07-22 17:38] VITALS: BP 137/84; O2SAT 100
== END 2023-07-22 17:45 | disposition home or self-care (01) ==
LOC: M INFU 16:30
PROVIDERS: ATTEND Internal Medicine Gastroenterology
DX: K50.90 Crohn's disease, unspecified, without complications (principal)
CPT/HCPCS: 96365; J3380

== ENCOUNTER 2023-08-19 13:36 | Outpatient (CLI) | payer OTHER ==
[~2023-08-19] VITALS: Ht 167.6 cm; Wt 82.0 kg
[~2023-08-19 13:36] MED LIST changes: -VEDOLIZUMAB 300 MG in NS 250 ML IV ONE
[2023-08-19 13:45] VITALS: BP 143/88; O2SAT 100
[2023-08-19 15:00] VITALS: BP 136/82; O2SAT 100
[2023-08-19] MEDS ORDERED: VEDOLIZUMAB 300 MG in NS 250 ML IV ONE (16:30)
== END 2023-08-19 15:00 ==
LOC: M INFU 13:36
PROVIDERS: ATTEND Internal Medicine Gastroenterology
DX: K50.90 Crohn's disease, unspecified, without complications (principal)
CPT/HCPCS: 96365; J3380

== ENCOUNTER 2023-12-24 07:10 | Outpatient (CLI) | payer OTHER ==
[~2023-12-24] VITALS: Ht 167.6 cm; Wt 86.6 kg
[~2023-12-24 07:10] MED LIST changes: +ALBUTEROL SULFATE 2.5MG/0.5ML INH NEB SOLN INH PRN; -BUDE9TAB PO; +BUDE9TAB4 PO; +EPINEPHrine INJ 1 MG/ML 1ML AMP IM PRN; +NS 1,000 ML IV SCH; +diphenhydrAMINE 50MG/ML VIAL IV PRN; +methylPREDNISolone 125MG 2ML VIAL IV PRN
[2023-12-24 07:40] VITALS: BP 137/92; O2SAT 92
[2023-12-24] MEDS: VEDOLIZUMAB 300 MG in NS 250 ML IV ONE (07:44)
[2023-12-24 08:25] VITALS: BP 124/81; O2SAT 99
== END 2023-12-24 08:25 | disposition home or self-care (01) ==
LOC: M INFU 07:10
PROVIDERS: ATTEND Physician Assistant
DX: K50.90 Crohn's disease, unspecified, without complications (principal)
CPT/HCPCS: 96365; J3380

== ENCOUNTER → 2024-01-13 | Outpatient (CLI) | payer OTHER ==
[~2024-01-13] MED LIST changes: -ALBUTEROL SULFATE 2.5MG/0.5ML INH NEB SOLN INH PRN; -EPINEPHrine INJ 1 MG/ML 1ML AMP IM PRN; +ISOVUE-370 76% 100ML VIAL ONE; -NS 1,000 ML IV SCH; +ONDA-282 PO; +ONDA-284 PO; -ONDA4TAB6 PO; -ONDA8TAB8 PO; -diphenhydrAMINE 50MG/ML VIAL IV PRN; -methylPREDNISolone 125MG 2ML VIAL IV PRN
== END ==
LOC: M PLAIMG 08:46
PROVIDERS: ATTEND Surgery
DX: K43.9 Ventral hernia without obstruction or gangrene (principal)
CPT/HCPCS: 74178; Q9967

== ENCOUNTER 2024-01-21 08:05 | Outpatient (CLI) | payer OTHER ==
[~2024-01-21] VITALS: Ht 167.6 cm; Wt 86.3 kg
[~2024-01-21 08:05] MED LIST changes: +ALBUTEROL SULFATE 2.5MG/0.5ML INH NEB SOLN INH PRN; +EPINEPHrine INJ 1 MG/ML 1ML AMP IM PRN; -ISOVUE-370 76% 100ML VIAL ONE; +NS 1,000 ML IV SCH; +diphenhydrAMINE 50MG/ML VIAL IV PRN; +methylPREDNISolone 125MG 2ML VIAL IV PRN
[2024-01-21 08:10] VITALS: BP 168/90; O2SAT 96
[2024-01-21] MEDS: VEDOLIZUMAB 300 MG in NS 250 ML IV ONE (09:01)
[2024-01-21 09:38] VITALS: BP 152/86; O2SAT 18
== END 2024-01-21 09:40 ==
LOC: M INFU 08:05
PROVIDERS: ATTEND Physician Assistant
DX: K50.90 Crohn's disease, unspecified, without complications (principal)
CPT/HCPCS: 96365; J3380

== ENCOUNTER 2024-02-18 10:30 | Outpatient (CLI) | payer OTHER ==
[~2024-02-18] VITALS: Ht 167.6 cm; Wt 86.3 kg
[2024-02-18 10:35] VITALS: BP 127/84; O2SAT 99
[2024-02-18] MEDS: VEDOLIZUMAB 300 MG in NS 250 ML IV ONE (11:14)
[2024-02-18 11:50] VITALS: BP 134/82; O2SAT 100
== END 2024-02-18 11:55 ==
LOC: M INFU 10:30
PROVIDERS: ATTEND Physician Assistant
DX: K50.90 Crohn's disease, unspecified, without complications (principal)
CPT/HCPCS: 96413; J3380

== ENCOUNTER 2024-03-11 06:09 | Day surgery (SDC) | payer OTHER ==
[~2024-03-11] VITALS: Ht 167.6 cm; Wt 87.6 kg
[~2024-03-11 06:09] MED LIST changes: -ALBUTEROL SULFATE 2.5MG/0.5ML INH NEB SOLN INH PRN; -EPINEPHrine INJ 1 MG/ML 1ML AMP IM PRN; -NS 1,000 ML IV SCH; -diphenhydrAMINE 50MG/ML VIAL IV PRN; -methylPREDNISolone 125MG 2ML VIAL IV PRN
[2024-03-11] MEDS ORDERED: LR 1,000 ML IV SCH (06:15)
[2024-03-11] MEDS ORDERED: MIDAZOLAM INJ 2MG/2ML VIAL As Ordered ONE (06:45)
[2024-03-11] MEDS ORDERED: propofoL 200 MG/20 ML VIAL As Ordered ONE (06:46)
[2024-03-11] MEDS ORDERED: fentaNYL 100 MCG/2 ML INJECTION As Ordered ONE (06:46)
[2024-03-11] MEDS ORDERED: ONDANSETRON 4MG 2ML VIAL As Ordered ONE (06:46)
[2024-03-11] MEDS ORDERED: LIDOCAINE 2% 100MG/5ML SDV (FOR ANES.) As Ordered ONE (06:46)
[2024-03-11] MEDS: BOTOX THERAPEUTIC 100 UNIT VIAL As Ordered ONE (07:55)
[2024-03-11 08:29] VITALS: BP 136/99; TEMP 96.6; O2SAT 99
== END 2024-03-11 08:49 | disposition home or self-care (01) ==
LOC: M SDC 06:09
PROVIDERS: ATTEND Surgery
DX: K43.2 Incisional hernia without obstruction or gangrene (principal); K50.90 Crohn's disease, unspecified, without complications; F41.9 Anxiety disorder, unspecified; Z79.899 Other long term (current) drug therapy
CPT/HCPCS: 64646; J0585; J0665; J2250; J2405

== ENCOUNTER 2024-03-31 09:00 | Outpatient (CLI) | payer OTHER ==
[~2024-03-31] VITALS: Ht 167.6 cm; Wt 90.0 kg
[2024-03-31 08:30] VITALS: BP 148/92; O2SAT 99
[~2024-03-31 09:00] MED LIST changes: +ALBUTEROL SULFATE 2.5MG/0.5ML INH NEB SOLN INH PRN; +EPINEPHrine INJ 1 MG/ML 1ML AMP IM PRN; +NS 1,000 ML IV SCH; +diphenhydrAMINE 50MG/ML VIAL IV PRN; +methylPREDNISolone 125MG 2ML VIAL IV PRN
[2024-03-31] MEDS: VEDOLIZUMAB 300 MG in NS 250 ML IV ONE (10:10)
[2024-03-31 10:45] VITALS: BP 132/91; O2SAT 99
== END 2024-03-31 10:50 ==
LOC: M INFU 09:00
PROVIDERS: ATTEND Physician Assistant
DX: K50.90 Crohn's disease, unspecified, without complications (principal)
CPT/HCPCS: 96365; J3380

== ENCOUNTER 2024-04-21 06:05 | Day surgery (SDC) | payer OTHER ==
[~2024-04-21] VITALS: Ht 167.6 cm; Wt 88.0 kg
[~2024-04-21 06:05] MED LIST changes: -ALBUTEROL SULFATE 2.5MG/0.5ML INH NEB SOLN INH PRN; -EPINEPHrine INJ 1 MG/ML 1ML AMP IM PRN; -NS 1,000 ML IV SCH; -diphenhydrAMINE 50MG/ML VIAL IV PRN; -methylPREDNISolone 125MG 2ML VIAL IV PRN
[2024-04-21] MEDS ORDERED: LR 1,000 ML IV SCH ×2 (06:40→09:45)
[2024-04-21] MEDS: ceFAZolin SOD 2 GM in IV 1 EA IV ONE (07:45)
[2024-04-21] MEDS ORDERED: SUGAMMADEX SODIUM 500 MG/5 ML VIAL (BRIDION) As Ordered ONE (07:54)
[2024-04-21] MEDS ORDERED: ROCURONIUM BROMIDE 50MG/5ML VIAL As Ordered ONE (07:54)
[2024-04-21] MEDS ORDERED: LIDOCAINE 2% 100MG/5ML SDV (FOR ANES.) As Ordered ONE (07:54)
[2024-04-21] MEDS ORDERED: MIDAZOLAM INJ 2MG/2ML VIAL As Ordered ONE (07:54)
[2024-04-21] MEDS ORDERED: ONDANSETRON 4MG 2ML VIAL As Ordered ONE (07:54)
[2024-04-21] MEDS ORDERED: dexmedeTOMIDine (4MCG/ML)200MCG/50ML BTL (PRECEDEX) As Ordered ONE (07:54)
[2024-04-21] MEDS ORDERED: propofoL 200 MG/20 ML VIAL As Ordered ONE (07:54)
[2024-04-21] MEDS ORDERED: fentaNYL 100 MCG/2 ML INJECTION As Ordered ONE (07:54)
[2024-04-21] MEDS ORDERED: ACETAMINOPHEN 1000MG 100ML IV BAG As Ordered ONE (07:55)
[2024-04-21] MEDS: HEPARIN SOD (PORCINE) 5000UNITS/ML 1ML VIAL/SYRINGE SQ ONE (07:55)
[2024-04-21] MEDS ORDERED: HYDROmorphone HCL 2MG/ML 1ML VIAL As Ordered ONE (08:16)
[2024-04-21] MEDS ORDERED: KETOROLAC 60MG 2ML VIAL As Ordered ONE (08:25)
[2024-04-21] MEDS ORDERED: LABETALOL 100MG/20ML VIAL As Ordered ONE (09:26)
[2024-04-21] MEDS ORDERED: METOCLOPRAMIDE INJ 10MG/2ML VIAL As Ordered ONE (09:37)
[2024-04-21] MEDS ORDERED: HYDROMORPHONE HCL 0.5 MG/ 0.5 ML SYRINGE IV PRN (09:45)
[2024-04-21] MEDS ORDERED: ONDANSETRON 4MG 2ML VIAL IV PRN (09:45)
[2024-04-21] MEDS ORDERED: fentaNYL 100 MCG/2 ML INJECTION IV PRN (09:45)
[2024-04-21] MEDS: oxyCODONE 5MG TAB PO PRN (11:22)
[2024-04-21 11:35] VITALS: BP 116/70; TEMP 97.9; O2SAT 99
== END 2024-04-21 12:07 | disposition home or self-care (01) ==
LOC: M SDC 06:05
PROVIDERS: ATTEND Surgery
DX: K43.2 Incisional hernia without obstruction or gangrene (principal); D64.9 Anemia, unspecified; K50.90 Crohn's disease, unspecified, without complications; Z79.899 Other long term (current) drug therapy; F41.9 Anxiety disorder, unspecified; F32.A Depression, unspecified
CPT/HCPCS: 49593; C1781; C9290; J0131; J0665; J0690; J1100; J1170; J1885; J1920; J2250; J2405; J2765; J3010; S2900

== ENCOUNTER 2024-05-12 09:00 | Outpatient (CLI) | payer OTHER ==
[~2024-05-12] VITALS: Ht 167.6 cm; Wt 87.2 kg
[2024-05-12 09:00] VITALS: BP 138/75; O2SAT 100
[~2024-05-12 09:00] MED LIST changes: +ALBUTEROL SULFATE 2.5MG/0.5ML INH NEB SOLN INH PRN; +EPINEPHrine INJ 1 MG/ML 1ML AMP IM PRN; +NS 1,000 ML IV SCH; +diphenhydrAMINE 50MG/ML VIAL IV PRN; +methylPREDNISolone 125MG 2ML VIAL IV PRN
[2024-05-12] MEDS: VEDOLIZUMAB 300 MG in NS 250 ML IV ONE (09:43)
[2024-05-12 10:15] VITALS: BP 135/90; O2SAT 98
== END 2024-05-12 10:20 ==
LOC: M INFU 09:00
PROVIDERS: ATTEND Physician Assistant
DX: K50.90 Crohn's disease, unspecified, without complications (principal)
CPT/HCPCS: 96365; J3380

== ENCOUNTER 2024-06-23 09:20 | Outpatient (CLI) | payer OTHER ==
[~2024-06-23] VITALS: Ht 167.6 cm; Wt 88.6 kg
[~2024-06-23 09:20] MED LIST changes: -NS 1,000 ML IV SCH
[2024-06-23] MEDS ORDERED: NS 1,000 ML IV SCH (09:30)
[2024-06-23 09:35] VITALS: BP 126/77; O2SAT 98
[2024-06-23] MEDS: VEDOLIZUMAB 300 MG in NS 250 ML IV ONE (10:52)
[2024-06-23 11:25] VITALS: BP 134/72; O2SAT 100
[2024-06-27] MEDS ORDERED: ACET-897 PO (18:05)
[2024-06-27] MEDS ORDERED: MULT-90 PO (18:05)
== END 2024-06-23 11:30 ==
LOC: M INFU 09:20
PROVIDERS: ATTEND Physician Assistant
DX: K50.90 Crohn's disease, unspecified, without complications (principal)
CPT/HCPCS: 96365; J3380

== ENCOUNTER → 2024-06-29 | Outpatient (CLI) | payer OTHER ==
[~2024-06-29] MED LIST changes: +ACET-897 PO; -ALBUTEROL SULFATE 2.5MG/0.5ML INH NEB SOLN INH PRN; -EPINEPHrine INJ 1 MG/ML 1ML AMP IM PRN; +MULT-90 PO; -diphenhydrAMINE 50MG/ML VIAL IV PRN; -methylPREDNISolone 125MG 2ML VIAL IV PRN
[2024-06-29 08:05] VITALS: BP 170/93; TEMP 98; O2SAT 98
== END ==
LOC: M IRPRO 07:55
PROVIDERS: ATTEND Surgery
DX: M96.840 Postprocedural hematoma of a musculoskeletal structure following a musculoskeletal system procedure (principal)

== ENCOUNTER → 2024-08-18 | Outpatient (CLI) | payer OTHER ==
[~2024-08-18] VITALS: Ht 167.6 cm; Wt 86.3 kg
[~2024-08-18] MED LIST changes: +ALBUTEROL SULFATE 2.5MG/0.5ML INH NEB SOLN INH PRN; +EPINEPHrine INJ 1 MG/ML 1ML AMP IM PRN; +NS (Normal Saline) 0.9% 1,000 ML IV SCH; +diphenhydrAMINE 50MG/ML VIAL IV PRN; +methylPREDNISolone 125MG 2ML VIAL IV PRN
[2024-08-18 09:45] VITALS: BP 152/84; O2SAT 100
[2024-08-18] MEDS: VEDOLIZUMAB 300 MG in NS 250 ML IV ONE (09:59)
[2024-08-18 10:35] VITALS: BP 129/82; O2SAT 100
== END ==
LOC: M INFU 09:33
PROVIDERS: ATTEND Physician Assistant
DX: K50.90 Crohn's disease, unspecified, without complications (principal)
CPT/HCPCS: 96365; J3380

== ENCOUNTER 2024-10-13 09:25 | Outpatient (CLI) | payer OTHER ==
[~2024-10-13] VITALS: Ht 162.6 cm; Wt 90.0 kg
[2024-10-13 09:30] VITALS: BP 129/96; O2SAT 100
[2024-10-13] MEDS: VEDOLIZUMAB 300 MG in NS 250 ML IV ONE (10:10)
[2024-10-13 10:52] VITALS: BP 133/88; O2SAT 100
== END 2024-10-13 10:55 ==
LOC: M INFU 09:25
PROVIDERS: ATTEND Physician Assistant
DX: K50.90 Crohn's disease, unspecified, without complications (principal)
CPT/HCPCS: 96365; J3380

== ENCOUNTER 2024-12-02 08:55 | Outpatient (CLI) | payer OTHER ==
[~2024-12-02] VITALS: Ht 167.6 cm; Wt 90.0 kg
[~2024-12-02 08:55] MED LIST changes: +ALBUTEROL SULFATE 2.5MG/0.5ML INH CONCENTRATE NEB SOLN INH PRN; -ALBUTEROL SULFATE 2.5MG/0.5ML INH NEB SOLN INH PRN
[2024-12-02 09:00] VITALS: BP 153/91; O2SAT 100
[2024-12-02] MEDS: VEDOLIZUMAB 300 MG in NS 250 ML IV ONE (09:43)
[2024-12-02 10:23] VITALS: BP 136/94; O2SAT 100
== END 2024-12-02 12:05 | disposition home or self-care (01) ==
LOC: M INFU 08:55
PROVIDERS: ATTEND Physician Assistant
DX: K50.90 Crohn's disease, unspecified, without complications (principal)
CPT/HCPCS: 96365; J3380

== ENCOUNTER 2024-12-07 10:03 | Emergency (ER) | payer OTHER ==
[~2024-12-07] VITALS: Ht 167.6 cm; Wt 89.4 kg
[~2024-12-07 10:03] MED LIST changes: -ALBUTEROL SULFATE 2.5MG/0.5ML INH CONCENTRATE NEB SOLN INH PRN; -EPINEPHrine INJ 1 MG/ML 1ML AMP IM PRN; -NS (Normal Saline) 0.9% 1,000 ML IV SCH; -diphenhydrAMINE 50MG/ML VIAL IV PRN; -methylPREDNISolone 125MG 2ML VIAL IV PRN
[2024-12-07] MEDS: methylPREDNISolone 125MG 2ML VIAL IM ONE (11:54)
[2024-12-07] MEDS: ACETAMINOPHEN 500 MG TAB PO ONE (11:54)
[2024-12-07] MEDS: diazePAM 5MG TABLET PO ONE (11:54)
[2024-12-07] MEDS ORDERED: METH-1165 PO (13:03)
[2024-12-07] MEDS ORDERED: MEDR4PAK PO (13:03)
[2024-12-07 13:08] VITALS: BP 131/79; TEMP 98.5; O2SAT 100
== END 2024-12-07 13:14 | disposition home or self-care (01) ==
LOC: M ED 10:03
DX: M47.816 Spondylosis without myelopathy or radiculopathy, lumbar region (principal); M51.370 Other intervertebral disc degeneration, lumbosacral region with discogenic back pain only; M46.1 Sacroiliitis, not elsewhere classified; K50.90 Crohn's disease, unspecified, without complications; F17.200 Nicotine dependence, unspecified, uncomplicated; Z79.899 Other long term (current) drug therapy; Z79.1 Long term (current) use of non-steroidal anti-inflammatories (NSAID)
CPT/HCPCS: 72110; 96372; 99283; J2919

== ENCOUNTER → 2025-04-06 | Outpatient (CLI) | payer OTHER ==
[~2025-04-06] MED LIST changes: +MEDR4PAK PO; +METH-1165 PO; +PRED20TA PO
== END ==
LOC: M PLARAD 12:32
PROVIDERS: ATTEND Family Medicine
DX: M51.86 Other intervertebral disc disorders, lumbar region (principal); M47.816 Spondylosis without myelopathy or radiculopathy, lumbar region; M51.26 Other intervertebral disc displacement, lumbar region; M48.061 Spinal stenosis, lumbar region without neurogenic claudication

== ENCOUNTER 2025-04-16 11:47 | Emergency (ER) | payer OTHER ==
[~2025-04-16] VITALS: Ht 167.6 cm; Wt 87.7 kg
[2025-04-16] MEDS ORDERED: ACET1TAB55 PO (11:56)
[2025-04-16] MEDS ORDERED: MELO15TA28 PO (11:57)
[2025-04-16] MEDS ORDERED: CYCL-707 PO (11:58)
[2025-04-16] MEDS: PREGABALIN 75 MG CAP PO ONE ×2 (12:57→14:59)
[2025-04-16] MEDS ORDERED: MEDR4PAK PO (14:46)
[2025-04-16] MEDS ORDERED: LYRI75CA PO (14:47)
[2025-04-16 14:55] VITALS: BP 132/81; TEMP 99; O2SAT 97
== END 2025-04-16 15:10 | disposition home or self-care (01) ==
LOC: M ED 11:47
DX: M54.50 Low back pain, unspecified (principal); K50.90 Crohn's disease, unspecified, without complications; F32.A Depression, unspecified; F41.9 Anxiety disorder, unspecified; Z79.1 Long term (current) use of non-steroidal anti-inflammatories (NSAID); Z79.52 Long term (current) use of systemic steroids; Z79.899 Other long term (current) drug therapy
CPT/HCPCS: 72131; 96374; 99284; J1100

== ENCOUNTER 2025-04-27 14:02 | Outpatient (CLI) | payer OTHER ==
[~2025-04-27] VITALS: Ht 167.6 cm; Wt 86.3 kg
[~2025-04-27 14:02] MED LIST changes: +ACET1TAB55 PO; +ALBUTEROL SULFATE 2.5 MG/0.5 ML INH CONCENTRATE NEB SOLN INH PRN; +CYCL-707 PO; +EPINEPHrine INJ 1 MG/ML 1ML AMP IM PRN; +LYRI75CA PO; +MELO15TA28 PO; +NS (Normal Saline) 0.9% 1,000 ML IV SCH; +diphenhydrAMINE 50 MG/ML VIAL IV PRN
[2025-04-27 14:25] VITALS: BP 156/104; O2SAT 99
[2025-04-27] MEDS ORDERED: VEDOLIZUMAB 300 MG in NS 250 ML IV ONE (14:30)
[2025-04-27] MEDS: VEDOLIZUMAB 300 MG in NS 250 ML IV ONE (15:11)
[2025-04-27 15:37] VITALS: BP 141/87; O2SAT 99
== END 2025-04-27 15:49 | disposition home or self-care (01) ==
LOC: M INFU 14:02
PROVIDERS: ATTEND Physician Assistant
DX: K50.018 Crohn's disease of small intestine with other complication (principal)
CPT/HCPCS: 96365; J3380

== ENCOUNTER → 2025-05-08 | Outpatient (CLI) | payer OTHER ==
[~2025-05-08] MED LIST changes: -ALBUTEROL SULFATE 2.5 MG/0.5 ML INH CONCENTRATE NEB SOLN INH PRN; -EPINEPHrine INJ 1 MG/ML 1ML AMP IM PRN; -NS (Normal Saline) 0.9% 1,000 ML IV SCH; -diphenhydrAMINE 50 MG/ML VIAL IV PRN
== END ==
LOC: M RAD 06:48
PROVIDERS: ATTEND Family Medicine
DX: M54.89 Other dorsalgia (principal); M54.2 Cervicalgia

== ENCOUNTER 2025-06-08 14:06 | Outpatient (CLI) | payer OTHER ==
[~2025-06-08] VITALS: Ht 167.6 cm; Wt 89.5 kg
[~2025-06-08 14:06] MED LIST changes: +ALBUTEROL SULFATE 2.5 MG/0.5 ML INH CONCENTRATE NEB SOLN INH PRN; +EPINEPHrine INJ 1 MG/ML 1ML AMP IM PRN; +NS (Normal Saline) 0.9% 1,000 ML IV SCH; +diphenhydrAMINE 50 MG/ML VIAL IV PRN
[2025-06-08 14:20] VITALS: BP 137/91; O2SAT 99
[2025-06-08 15:00] VITALS: BP 137/83; O2SAT 100
[2025-06-08] MEDS: VEDOLIZUMAB 300 MG in NS 250 ML IV ONE (15:05)
== END 2025-06-08 15:42 ==
LOC: M INFU 14:06
PROVIDERS: ATTEND Physician Assistant
DX: K50.018 Crohn's disease of small intestine with other complication (principal)
CPT/HCPCS: 96365; J3380

== ENCOUNTER 2025-07-20 14:16 | Outpatient (CLI) | payer OTHER ==
[~2025-07-20] VITALS: Ht 167.6 cm; Wt 85.9 kg
[2025-07-20] MEDS: VEDOLIZUMAB 300 MG in NS 250 ML IV ONE (15:11)
[2025-07-20 15:50] VITALS: BP 121/89; O2SAT 98
== END 2025-07-20 15:45 | disposition home or self-care (01) ==
LOC: M INFU 14:16
PROVIDERS: ATTEND Physician Assistant
DX: K50.018 Crohn's disease of small intestine with other complication (principal)
CPT/HCPCS: 96365; J3380